=== PATIENT | female | born 1980 | race Caucasian/White ===

== ENCOUNTER 2020-12-07 11:04 | Day surgery (SDC) | payer BC ==
[2020-12-04 14:41] LABS: BASOPHILS % (AUTO) 1 % (0-1); EOSINOPHILS % (AUTO) 3 % (1-7); LYMPHOCYTES % (AUTO) 36 % (22-44); MEAN CORPUSCULAR HEMOGLOBIN 30.2 pg (27.0-34.8); MEAN CORPUSCULAR HGB CONC 33.1 g/dL (32.4-35.8); MEAN PLATELET VOLUME 8.3 fL (7.4-10.4); MONOCYTES % (AUTO) 9 % (2-9); NEUTROPHILS % (AUTO) 52 % (42-75); PLATELET COUNT 279 x10^3/uL (130-400); RED BLOOD COUNT 4.75 x10^6/uL (3.82-5.3); RED CELL DISTRIBUTION WIDTH 12.5 % (9.6-15.2)
[2020-12-04 14:42] LABS: MD NO
[~2020-12-07] VITALS: Ht 162.6 cm; Wt 76.3 kg
[~2020-12-07 11:04] MED LIST: ACETAMINOPHEN 325 MG TABLET PO PRN; COLLAGEN PO; DIAZEPAM 5 MG/ML, 2ML IVPush PRN; DIPHENHYDRAMINE 50 MG/ML, 1ML IVPush PRN; EPHEDRINE 50 MG/ML, 1ML IVPush PRN; FENTANYL PF 100 MCG/2ML IV PRN; HALOPERIDOL 5 MG/ML IV PRN; HYDROmorphone 1 MG/ML, 1ML INJ IVPush PRN; KETOROLAC 30 MG/1 ML IVPush PRN; LABETALOL 5MG/ML, 20ML IV PRN; MAGNESIUM LACTATE PO; MELA1TAB46 PO; MEPERIDINE/PF 25MG/0.5ML IVPush PRN; METOCLOPRAMIDE 5 MG/ML, 2ML IVPush PRN; METOPROLOL 1 MG/ML, 5ML IV PRN; NORETHINDRONE PO; ONDANSETRON 2MG/ML, 2ML IVPush PRN; OXYcodone 5 MG/5 ML ORAL.SOL UDC PO PRN; PROMETHAZINE 25 MG/ML, 1ML IVPush PRN; hydrALAzine 20 MG/ML, 1ML IV PRN
[2020-12-07] MEDS ORDERED: MIDAZOLAM 1 MG/ML, 2ML ONE (11:27)
[2020-12-07] MEDS ORDERED: FENTANYL PF 100 MCG/2ML ONE ×2 (11:27→14:32)
[2020-12-07 11:54] VITALS: BP 136/89
[2020-12-07] MEDS ORDERED: LACTATED RINGERS 1,000 ML IV SCH (12:00)
[2020-12-07] MEDS ORDERED: CHLORHEXIDINE 15 ML UDC PO ONE (12:00)
[2020-12-07] MEDS ORDERED: LIDOCAINE-MPF 1%, 2ML INFIL ONE (12:00)
[2020-12-07] MEDS ORDERED: SILVER NITRATE STICK TP ONE (12:28)
[2020-12-07] MEDS ORDERED: BUPIVACAINE 0.25% ONE (12:28)
[2020-12-07] MEDS ORDERED: PROPOFOL 10 MG/ML, 50ML ONE (13:00)
[2020-12-07] MEDS ORDERED: PROPOFOL 10 MG/ML, 20ML ONE (13:00)
[2020-12-07] MEDS ORDERED: KETOROLAC 30 MG/1 ML ONE (13:00)
[2020-12-07] MEDS ORDERED: ONDANSETRON 2MG/ML, 2ML ONE (13:00)
[2020-12-07] MEDS ORDERED: ACETAMINOPHEN 650 MG/20.3 ML UDC ONE (14:29)
[2020-12-07] MEDS ORDERED: OXYcodone 5 MG/5 ML ORAL.SOL UDC ONE ×2 (14:29→14:35)
== END 2020-12-07 16:45 | disposition home or self-care (01) ==
LOC: OUT 11:04
PROVIDERS: ATTEND Obstetrics & Gynecology
DX: N93.8 Other specified abnormal uterine and vaginal bleeding (principal); F12.90 Cannabis use, unspecified, uncomplicated; Z88.1 Allergy status to other antibiotic agents; Z98.890 Other specified postprocedural states; Z20.822 Contact with and (suspected) exposure to COVID-19; Z79.899 Other long term (current) drug therapy; Z72.89 Other problems related to lifestyle
CPT/HCPCS: 36415; 58563; 84703; 85025; J1885; J2250; J2405; J2704; J3010; J7120; U0003